=== PATIENT | female | born 1940 | race African-American/Black ===

== ENCOUNTER 2016-12-07 20:52 | Emergency (ER) | payer OTHER ==
--- NOTE | ~2016-12-07 | CT2 ---
[facility] A Service of [facility] RADIOLOGY TEXT RESULTS PATIENT: PEÑA VILLALOBOS LOCATION: [facility] : 40 UNIT #: [id number] AGE: [address]: Jeffery Tirado MD SEX: F ORDER DR: [id number] [facility] [address] [place], [place] [address] [id number] E MR#: [id number] Acc #: [id number] NAME: PEÑA VILLALOBOS : 1940 SEX: F STUDY DATE/TIME: 12/07/2016 22:32 UNIT: [facility] ROOM: STUDY DESCRIPTION: CT Abd and Pelv W Cont Attending Physician: Jeffery Tirado M.D. Ordering Physician: Jeffery Tirado M.D. Primary Care Physician: Mariela Red Aprn MEDICAL IMAGING REPORT This report is preliminary unless electronic signature is present EXAM CT abdomen and pelvis with contrast 12/07/2016 HISTORY 76-year-old female in the ED complaining of abdomen pain with vomiting and diarrhea beginning earlier today. TECHNIQUE CT examination of the abdomen and pelvis with oral and IV contrast. This CT exam was performed with one or more of the following radiation dose reduction techniques: automatic control, adjustment of mA and/or kV according to patient size, and iterative reconstruction. COMPARISON CT abdomen and pelvis, 02/15/2014 and 06/08/2013. FINDINGS ABDOMEN FINDINGS: The exam shows long segment wall thickening involving distal ileum and the right lower quadrant of the abdomen where there is adjacent mesenteric edema and soft tissue stranding. This spares the terminal ileum and cecum. Small volume free fluid is present in the right upper quadrant adjacent to the liver and in the lower pelvis. Very similar findings were present on the two prior CT studies in 2013 and 2012. Recurrent inflammatory bowel disease is suspected, and Crohn disease should be considered. No evidence of abscess, bowel obstruction or additional complicating feature. Liver, pancreas, spleen and kidneys are within normal limits. Nondistended gallbladder. No bile duct dilatation. 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 PELVIS FINDINGS: Hysterectomy. Bladder and rectum are negative. STS. [facility] A Service of [facility] RADIOLOGY TEXT RESULTS PATIENT: PEÑA VILLALOBOS LOCATION: [facility] : 40 UNIT #: [id number] AGE: [address]: Jeffery Tirado MD SEX: F ORDER DR: IMPRESSION 1. Single long segment of acute inflammation involving the distal ileum in the right lower abdomen, sparing the terminal ileum and cecum. Adjacent soft tissue stranding and mesenteric edema. Small volume free fluid in the right upper quadrant and pelvis. Nearly identical findings were present on 2 prior studies performed in 2013 and 2012. Recurrent inflammatory bowel disease, most likely Crohn disease, is likely. No evidence of abscess, bowel obstruction or other complicating feature. 2. Hysterectomy. 3. Remainder of the exam is negative. Dictated by... Angelo Martinez M.D. THIS IS AN ELECTRONICALLY VERIFIED REPORT Angelo Martinez M.D. at 12/09/2016 10:18 PM YAHAIRA/[email or web address] TD: 12/08/2016 00:20 JOB #: [id number] MEDICAL IMAGING REPORT Page 1 of 1 COPY
[2016-12-07 19:41] LABS: BASOPHIL# 0.1 X10e3 (0-0.3); BASOPHIL% 0.6 % (0-2.5); HEMATOCRIT 40.1 % (35.0-45.0); HEMOGLOBIN 13.2 gm/dL (12.0-16.0); LYMPHOCYTE# 0.9 X10e3 (1.0-3.5); LYMPHOCYTE% 7.5 % (17.0-45.0); MEAN CELL VOLUME 88.3 FL (83-96); MEAN CORPUSCULAR HGB CONC 32.9 g/dL (30-36); MEAN PLATELET VOLUME 8.8 FL (6.5-11.5); MONOCYTE# 0.2 X10e3 (0-1.0); MONOCYTE% 1.9 % (3.0-12.0); NEUTROPHIL# 10.4 X10e3 (1.5-7.1); PLATELET COUNT 198 X10e3 (140-420); RED BLOOD COUNT 4.54 X10e (3.90-5.30); RED CELL DISTRIBUTION WIDTH 13.5 % (11.0-15.5); WHITE BLOOD COUNT 11.5 X10e3 (4.0-10.5)
[2016-12-07 19:42] LABS: DIFF IND NO
[2016-12-07 20:03] LABS: ALBUMIN SERUM 3.9 g/dL (3.5-5.0); BILIRUBIN, DIRECT 0.1 mg/dL (0.0-0.2); BILIRUBIN,INDIRECT 0.6 mg/dL (0.0-0.9); BILIRUBIN,TOTAL 0.7 mg/dL (0.2-2.0); CALCIUM SERUM 9.3 mg/dL (8.4-10.2); CREATININE SERUM 1.1 mg/dL (0.6-1.4); GLOM FILT RATE Estimated 56.5 mL/min (>60); POTASSIUM 4.3 mmol/L (3.5-5.1); PROTEIN TOTAL SERUM 7.8 g/dL (6.0-8.3)
[~2016-12-07 20:52] MED LIST: PRILOSEC20 M1 PO
[2016-12-07 20:58] LABS: URINE SOURCE CLEAN CATCH
[2016-12-07 21:02] LABS: URINE BILIRUBIN NEG (NEG); URINE BLOOD NEG (NEG); URINE COLOR YELLOW; URINE GLUCOSE NEG (NEG); URINE KETONE NEG (NEG); URINE LEUKOCYTE ESTERASE 1+ (NEG); URINE NITRATE NEG (NEG); URINE PROTEIN NEG (NEG); URINE SPECIFIC GRAVITY 1.024 (1.003-1.035); URINE UROBILINOGEN 0.2 MG/DL (NEG)
[2016-12-07 21:04] LABS: URINE BACTERIA AUWI NEG (NEGATIVE); URINE SQUAMOUS EPITHELIAL CELL OCC /[HPF]
== END 2016-12-08 01:33 | disposition home or self-care (01) ==
LOC: CED 20:52
PROVIDERS: Emergency Medicine
DX: N30.00 Acute cystitis without hematuria (principal); K50.90 Crohn's disease, unspecified, without complications; N18.9 Chronic kidney disease, unspecified
CPT/HCPCS: 36415; 74177; 80048; 80076; 81003; 83690; 84443; 85025; 96361; 96374; 96375; 99284; J2270; J2405; J2765; Q9967